=== PATIENT | female | born 1950 | race Caucasian/White ===

== ENCOUNTER → 2024-05-20 16:46 | Outpatient (CLI) | payer MEDICARE, SELFPAY ==
--- NOTE | 2024-05-20 16:50 | DI.MG.S_ITS ---
BILATERAL DIGITAL SCREENING MAMMOGRAM 3D/2D WITH CAD WITH AUGMENTATION: 05/20/2024 CLINICAL: Routine screening. Comparison is made to exams dated: 08/15/2022 mammogram, 08/14/2021 mammogram, and 07/01/2020 mammogram - out side. The breasts are heterogeneously dense, which may obscure small masses (category c / 51-75% glandular tissue). Current study was also evaluated with a Computer Aided Detection (CAD) system. Bilateral breast implants are stable. No significant masses, calcifications, or other findings are seen in either breast. There has been no significant interval change. IMPRESSION: NEGATIVE There is no mammographic evidence of malignancy. A 1 year screening mammogram is recommended. Based on the Tyrer Cuzick model (a risk assessment model) the patient's lifetime risk is 8.2% and her 10 year risk is 6.2%. According to the ACR, ACS, and NCCN guidelines, an annual breast MRI exam along with mammogram is recommended if the patient's lifetime risk is 20% or greater. This exam was interpreted at Station ID: [id number]. NOTE: For mammograms, a report in lay terms will be sent to the patient. Approximately 15% of breast malignancies will not be visualized mammographically. In the management of a palpable breast mass, a negative mammogram must not discourage biopsy of a clinically suspicious lesion. Electronically Signed By: Alonso [email or web address]:05/21/2024 09:37:11 copy to: Tiana Rojo MD, [employer] letter sent: Normal Exam ACR BI-RADS Category 1: Negative
== END ==
PROVIDERS: PCP Family Medicine; Referring Provider Obstetrics & Gynecology; Visit Provider Obstetrics & Gynecology
DX: Z12.31 Encounter for screening mammogram for malignant neoplasm of breast (principal); R92.333 Mammographic heterogeneous density, bilateral breasts
CPT/HCPCS: 77063; 77067

== ENCOUNTER → 2024-10-01 13:17 | Outpatient (CLI) | payer MEDICARE, SELFPAY ==
--- NOTE | 2024-10-01 13:19 | DI.US.S_ITS ---
MM diagnostic mammo implant RT, US breast RT limited: 10/01/2024 BI-RADS: 2 CLINICAL: 74-year old female for right diagnostic mammogram and right diagnostic breast ultrasound. Tyrer-Cuzick lifetime risk of 6.4%. No personal or first-degree family history of breast cancer. The patient reports a palpable abnormality (less than 1 month) in the right breast. The patient has bilateral implants. PRIOR EXAMS 05/20/2024. MAMMOGRAPHY TECHNIQUE: 2D and 3D (tomosynthesis) digital mammographic views obtained, with additional images as needed for full coverage. Current study was also evaluated with a Computer Aided Detection (CAD) system. ULTRASOUND TECHNIQUE Right Axilla. Real-time huynh scale and color doppler imaging of the area of clinical interest was performed with image documentation. TARGETED Right Breast Ultrasound: Real-time ultrasound exam was performed focused to area of clinical and/or imaging concern. DENSITY Right: C. The breasts are heterogeneously dense, which may obscure small masses. IMPLANTS Right: There is a silicone implant. MAMMOGRAPHY FINDINGS Right: Upper Inner at 2:00, Middle depth: Correlating with patient concern of palpable lump, there is a focal asymmetry present. Silicone implant on the right. This focal asymmetry is high density and similar to adjacent silicone implant. ULTRASOUND FINDINGS Right: Upper Inner at 2:00, 9 cm from nipple: Ill-defined heterogeneous region in the right breast which correlates with high density material seen on mammogram and with palpable area of concern. There is a snowstorm appearance consistent with silicone. This is extracapsular and there is a possible tear of the implant noted at the 2:00 4cm from the nipple. No suspicious vascularity. This snowstorm artifact is visualized from 9cm to 14cm from the nipple. There is free silicone. Finding(s) correlate with mammographic evaluation. Right: Axilla: No abnormal lymph nodes are seen in the axilla. IMPRESSION: Right * No evidence of malignancy with benign findings. * Implant noted - details above. RECOMMENDATIONS Bilateral * Annual screening mammography. COMMENTS: Clinical follow-up is recommended, and further management of palpable abnormalities or other focal signs or symptoms should be based on the results of clinical evaluation. If palpable abnormality or other concerning symptom persists or progresses, further clinical evaluation should be considered. Additionally, if documentation of implant rupture is required, consider further evaluation with breast MRI using breast implant protocol. Findings and recommendations were conveyed to the patient during today's evaluation. OVERALL ASSESSMENT CATEGORY BI-RADS-2: Benign. The [employer] recommends annual screening mammography beginning at age 40 for women with average risk of breast cancer. ELECTRONICALLY SIGNED: Tip Potts M.D. on 10/01/2024 at 04:59:54 PM PT Interpreting Station ID: [id number]
== END ==
PROVIDERS: PCP Family Medicine; Referring Provider Obstetrics & Gynecology; Visit Provider Obstetrics & Gynecology
DX: N63.10 Unspecified lump in the right breast, unspecified quadrant (principal); R92.331 Mammographic heterogeneous density, right breast; Z98.82 Breast implant status
CPT/HCPCS: 76642; 77065; G0279

== ENCOUNTER → 2024-10-08 16:16 | Outpatient (CLI) | payer MEDICARE, SELFPAY ==
--- NOTE | 2024-10-08 16:17 | DI.MRI.S_ITS ---
MR breast BI wo con: 10/08/2024. BI-RADS: None CLINICAL: 74-year old female for bilateral diagnostic breast MRI. No personal or first-degree family history of breast cancer. The patient has bilateral implants. PRIOR EXAMS Mammogram(s): 10/01/2024. Breast Ultrasound(s): 10/01/2024. One Other Exam on 05/20/2024. MRI TECHNIQUE: Multiple Axial and Sagittal sequences were performed without IV contrast use, including STIR and Silicone-Specific sequences for purpose of evaluation of implants including their integrity. This exam is not designed for cancer detection and it is not sensitive for such. FIBROGLANDULAR TISSUE Bilateral: C. Heterogeneous fibroglandular tissue. IMPLANT FINDINGS There are bilateral retro glandular silicone gel implants with evidence of intracapsular and extracapsular rupture. IMPRESSION: * Bilateral silicone gel implants with evidence of intracapsular and extracapsular rupture. RECOMMENDATIONS * Clinical follow-up is recommended. OVERALL ASSESSMENT CATEGORY BI-RADS None: This exam requires no BI-RADS. ELECTRONICALLY SIGNED: Daisy Zapata M.D. on 10/09/2024 at 05:29:25 PM PT Interpreting Station ID: [id number]
== END ==
PROVIDERS: Referring Provider Obstetrics & Gynecology; Visit Provider Emergency Medicine
DX: T85.43XA Leakage of breast prosthesis and implant, initial encounter (principal); R92.333 Mammographic heterogeneous density, bilateral breasts; Z98.82 Breast implant status
CPT/HCPCS: 77047